=== PATIENT | male | born 1945 | race Caucasian/White ===

== ENCOUNTER 2024-05-27 03:14 | Emergency (ER) | payer MEDICARE, OTHER ==
[2024-05-27 04:04] LABS: BASOPHILS PERCENT AUTO 0.2 % (0.1-1.3); EOSINOPHILS PERCENT AUTO 0.2 % (0.0-5.4); HEMATOCRIT 30.3 % (38.4-49.7); HEMOGLOBIN 9.3 g/dL (12.9-16.9); IMMATURE GRAN PERCENT AUTO 0.2 % (0.0-0.7); LYMPHOCYTES ABSOLUTE AUTO 0.74 K/uL (0.8-3.3); LYMPHOCYTES PERCENT AUTO 12.9 % (11.4-47.7); MEAN CORPUSCULAR HEMOGLOBIN 31.1 pg (31.6-35.5); MEAN CORPUSCULAR HGB CONC 30.7 g/dL (31.6-35.5); MEAN CORPUSCULAR VOLUME 101.3 fL (81.4-99.0); MONOCYTES ABSOLUTE AUTO 0.41 K/uL (0.20-0.90); MONOCYTES PERCENT AUTO 7.1 % (3.3-12.6); NEUTROPHILS ABSOLUTE AUTO 4.56 K/uL (1.0-7.6); NEUTROPHILS PERCENT AUTO 79.4 % (40.0-78.1); PLATELET COUNT,PLT 106 K/uL (130-375); RED BLOOD CELL COUNT 2.99 M/uL (4.14-5.76); WHITE BLOOD CELL COUNT,WBC 5.7 K/uL (3.2-11.0)
[2024-05-27 04:05] LABS: BASOPHILS ABSOLUTE AUTO 0.01 K/uL (0.00-0.10); EOSINOPHILS ABSOLUTE AUTO 0.01 K/uL (0.00-0.40); IMMATURE GRAN ABSOLUTE AUTO 0.01 K/uL (0.00-0.23)
[2024-05-27] MEDS: Albuterol/Ipratropium 3.0-0.5 MG/3 ML Neb Soln NEB ONE (04:25)
[2024-05-27 04:33] LABS: ANION GAP 9.9 mmol/L (5.0-14.0); CALCIUM 8.9 mg/dL (8.5-10.1); CREATININE 2.8 mg/dL (0.8-1.3); EST CRCL DRUG DOSING (CG) 21.39 mL/min; POTASSIUM,K 4.5 mmol/L (3.6-5.2)
[2024-05-27 04:34] LABS: TROPONIN I HIGH SENSITIVITY 18444.1 pg/mL (<=60.3)
[2024-05-27] MEDS: Furosemide 40 MG/4 ML VIAL IVPUSH ONE (05:01)
[2024-05-27 05:05] LABS: BASE EXCESS ARTERIAL -0.3 mm/L; BICARBONATE,ARTERIAL 23.1 mmol/L (22.0-26.0); CARBOXYHEMOGLOBIN 3.3 % (0.0-1.6); METHEMOGLOBIN 0.8 %; O2 SATURATION ARTERIAL 95.5 % (95.0-98.0); OXYHEMOGLOBIN 91.6 %; PCO2 ARTERIAL 34.5 mmHg (35.0-42.0); PO2 ARTERIAL 78.2 mmHg (75.0-100.0); TOTAL HEMOGLOBIN 9.4 g/dL (13.5-18.0)
[2024-05-27] MEDS ORDERED: Succinylcholine 200 MG/10 ML MDV ONE (05:20)
[2024-05-27] MEDS: Propofol 200 MG/20 ML SDV IVPUSH ONE (05:20)
[2024-05-27] MEDS ORDERED: Propofol 200 MG/20 ML SDV ONE (05:30)
[2024-05-27] MEDS: propofoL 100 ML IV SCH (05:34)
[2024-05-27] MEDS: Heparin Sodium 5,000 Units/ML Vial IVPUSH ONE (05:48)
[2024-05-27] MEDS: Propofol 200 MG/20 ML SDV ONE (05:54)
[2024-05-27] MEDS ORDERED: Norepinephrine Bit/D5W Premix 250 ML ONE (05:56)
[2024-05-27] MEDS: Heparin Sodium/D5W 25,000 UNITS/500 ML BAG IV SCH (05:59)
[2024-05-27] MEDS ORDERED: Heparin Sodium/D5W 25,000 UNITS/500 ML BAG IV SCH (06:15)
[2024-05-27] MEDS: Norepinephrine Bit/D5W Premix 4 MG in Premix Bag 1 BAG IV SCH (06:20)
== END 2024-05-27 08:14 ==
LOC: JP.ED 03:14
DX: J96.01 Acute respiratory failure with hypoxia (principal); I21.4 Non-ST elevation (NSTEMI) myocardial infarction; Z79.899 Other long term (current) drug therapy; Z91.018 Allergy to other foods; Z88.8 Allergy status to other drugs, medicaments and biological substances; Z91.010 Allergy to peanuts
CPT/HCPCS: 31500; 36415; 36600; 51702; 71045; 80048; 82803; 83880; 84484; 85025; 85379; 93005; 94640; 96365; 96366; 96368; 96375; 99285; J0330; J1644; J1940; J2704; J7620